=== PATIENT | male | born 1950 | race Caucasian/White ===

== ENCOUNTER 2024-09-01 14:18 | Emergency (ER) | payer OTHER, MEDICARE, BC ==
[2024-09-01] MEDS ORDERED: Sodium Chloride 0.9% 10 ML Syringe FLUSH PRN (14:28)
[2024-09-01 15:04] LABS: BASOPHILS PERCENT AUTO 0.3 % (0.0-1.0); EOSINOPHILS ABSOLUTE AUTO 0.1 K/mm3 (0.0-0.4); HEMOGLOBIN 11.8 gm/dl (14.0-18.0); IMMATURE GRAN ABSOLUTE AUTO 0.05 K/mm3 (0.00-0.05); IMMATURE GRAN PERCENT AUTO 0.6 % (0.0-0.4); LYMPHOCYTES PERCENT AUTO 11.6 % (24.0-44.0); MEAN CORPUSCULAR HEMOGLOBIN 29.7 pg (28.0-32.0); MEAN CORPUSCULAR HGB CONC 32.8 g/dl (32.0-36.0); MEAN CORPUSCULAR VOLUME 90.7 fl (83.0-99.0); MEAN PLATELET VOLUME 9.9 fl (9.4-12.4); MONOCYTES ABSOLUTE AUTO 0.9 K/mm3 (0.0-0.8); MONOCYTES PERCENT AUTO 10.5 % (0.0-8.0); NEUTROPHILS ABSOLUTE AUTO 6.7 K/mm3 (1.8-7.7); PLATELET COUNT,PLT 212 K/mm3 (150-400); RED BLOOD CELL COUNT 3.97 M/mm3 (4.52-5.90); WHITE BLOOD CELL COUNT,WBC 8.82 K/mm3 (3.9-11.3)
[2024-09-01] MEDS: Sodium Chloride 0.9% 10 ML Syringe FLUSH ONE (15:33)
[2024-09-01] MEDS: Iopamidol 612 MG/ML 100 ML Bottle IVPUSH ONE (15:33)
[2024-09-01 15:37] LABS: APPEARANCE,URINE CLEAR (Clear); BILIRUBIN,URINE NEGATIVE (Negative); COLOR,URINE YELLOW (Yellow); GLUCOSE,URINE NEGATIVE (Negative); KETONES,URINE NEGATIVE (Negative); LEUKOCYTE ESTERASE,URINE 1+ (Negative); NITRITE,URINE NEGATIVE (Negative); OCCULT BLOOD,URINE 2+ (Negative); PH,URINE 7.5 (5.0-8.0); PROTEIN,URINE TRACE (Negative); UROBILINOGEN,URINE 0.2 (0.2-1.0)
[2024-09-01 15:37] LABS: ALANINE AMINOTRANSFERASE,ALT 28 U/L (16-63); ALBUMIN 3.6 g/dl (3.4-5.0); ALKALINE PHOSPHATASE 77 U/L (46-116); ASPARTATE AMNIOTRANSFERASE,AST 29 U/L (15-37); BILIRUBIN TOTAL 0.6 mg/dL (0.2-1.0); BLOOD UREA NITROGEN,BUN 23 mg/dL (7-18); BUN/CREATININE RATIO 13.5 (14-18); CALCIUM 9.1 mg/dL (8.5-10.1); CARBON DIOXIDE,CO2 27 mEq/L (21-32); CHLORIDE,CL 103 mEq/L (98-107); CREATININE 1.7 mg/dL (0.7-1.3); ESTIMATED GFR 42 mL/min (>60); GLUCOSE RANDOM 117 mg/dL (70-99); LIPASE 93 U/L (16-77); PROTEIN TOTAL,TP 7.1 g/dl (6.4-8.2); SODIUM,NA 139 mEq/L (136-145)
[2024-09-01 15:54] LABS: BACTERIA,URINE FEW /hpf (FEW); EPITHELIAL CELLS,URINE 0-5 /hpf (0-5); MUCUS,URINE FEW /hpf (FEW); WBC,URINE 0-5 /hpf (0-5)
[2024-09-01] MEDS: Sodium Chloride 0.9% 500 ML IV ONE (16:33)
== END 2024-09-01 20:00 | disposition home or self-care (01) ==
LOC: JD.ED 14:18
DX: M54.2 Cervicalgia (principal); R82.90 Unspecified abnormal findings in urine; R74.8 Abnormal levels of other serum enzymes; R94.4 Abnormal results of kidney function studies; V49.40XA Driver injured in collision with unspecified motor vehicles in traffic accident, initial encounter; Y92.410 Unspecified street and highway as the place of occurrence of the external cause
CPT/HCPCS: 36415; 70450; 71260; 72125; 74177; 80053; 80307; 81001; 83690; 83880; 85025; 87086; 96360; 96361; 99284; J7030; Q9967

== ENCOUNTER 2025-02-15 13:33 | Day surgery (SDC) | payer MEDICARE, BC ==
[2025-02-15] MEDS: Lidocaine 1% PF 2 ML SDV INJECT SCH (07:41)
[2025-02-15] MEDS: Tetracaine HCl/PF 0.5% 4 ML Bottle EYEBOTH SCH (07:41)
[2025-02-15] MEDS: Cefuroxime 10 MG/ML SYRINGE EYERT SCH (07:42)
[2025-02-15] MEDS: Pilocarpine 4% Ophth Soln 15 ML Bot EYERT SCH (07:42)
[2025-02-15] MEDS: Polymyxin B/Trimethoprim 10 ML Bottle EYERT SCH (07:42)
[2025-02-15] MEDS: Tropicamide 1% Ophth Soln 3 ML Bottle EYERT SCH (14:05)
== END 2025-02-15 15:58 ==
LOC: JD.SDS 13:33
PROVIDERS: ATTEND Ophthalmology
DX: H25.813 Combined forms of age-related cataract, bilateral (principal); H21.81 Floppy iris syndrome; H21.40 Pupillary membranes, unspecified eye; H40.033 Anatomical narrow angle, bilateral; H40.053 Ocular hypertension, bilateral; H02.834 Dermatochalasis of left upper eyelid; H02.831 Dermatochalasis of right upper eyelid; H57.813 Brow ptosis, bilateral; H16.223 Keratoconjunctivitis sicca, not specified as Sjogren's, bilateral; H16.9 Unspecified keratitis; I10 Essential (primary) hypertension; E78.00 Pure hypercholesterolemia, unspecified; Z79.82 Long term (current) use of aspirin; Z79.899 Other long term (current) drug therapy
CPT/HCPCS: A9270-GY; J0697; J3490

== ENCOUNTER 2025-03-15 07:25 | Day surgery (SDC) | payer MEDICARE, BC ==
[~2025-03-15 07:25] MED LIST: Pilocarpine 4% Ophth Soln 15 ML Bot EYELF SCH
[2025-03-15] MEDS: Polymyxin B/Trimethoprim 10 ML Bottle EYELF SCH (07:40)
[2025-03-15] MEDS: Tropicamide 1% Ophth Soln 3 ML Bottle EYELF SCH (07:49)
[2025-03-15] MEDS: Tetracaine HCl/PF 0.5% 4 ML Bottle EYEBOTH SCH (08:53)
[2025-03-15] MEDS: Lidocaine 1% PF 2 ML SDV INJECT SCH (09:18)
[2025-03-15] MEDS: Cefuroxime 10 MG/ML SYRINGE EYELF SCH (09:30)
== END 2025-03-15 09:38 | disposition home or self-care (01) ==
LOC: JD.SDS 07:25
PROVIDERS: ATTEND Ophthalmology
DX: H25.812 Combined forms of age-related cataract, left eye (principal); H21.81 Floppy iris syndrome; H21.40 Pupillary membranes, unspecified eye; H40.032 Anatomical narrow angle, left eye; H40.053 Ocular hypertension, bilateral; H02.831 Dermatochalasis of right upper eyelid; H02.834 Dermatochalasis of left upper eyelid; H57.813 Brow ptosis, bilateral; H16.103 Unspecified superficial keratitis, bilateral; H16.223 Keratoconjunctivitis sicca, not specified as Sjogren's, bilateral; H52.31 Anisometropia; I10 Essential (primary) hypertension; Z96.1 Presence of intraocular lens; Z88.5 Allergy status to narcotic agent; Z79.82 Long term (current) use of aspirin; Z79.899 Other long term (current) drug therapy
CPT/HCPCS: A9270-GY; J0697; J3490